=== PATIENT | female | born 1950 | race Caucasian/White ===

== ENCOUNTER 2022-03-17 10:27 | Outpatient (REF) | payer MEDICARE, SELFPAY ==
[2022-03-17 11:14] LABS: MANUAL DIFF FLAG NO
[2022-03-17 11:22] LABS: Basophils Absolute Auto 0.1 X10*3/uL (0.0-0.2); Basophils Percent Auto 1.5 % (0-2); Eosinophils Absolute Auto 0.1 X10*3/uL (0.0-0.4); Eosinophils Percent Auto 2.3 % (0-4); Hematocrit 37.8 % (37.0-47.0); Hemoglobin 11.9 g/dl (12.0-16.0); Imm Gran Abs Auto 0.01 X10*3/uL (0.00-0.03); Imm Gran Pct Auto 0.3 % (0.0-0.4); Lymphocytes Absolute Auto 1.2 X10*3/uL (1.2-4.9); Lymphocytes Percent Auto 34.9 % (20-40); Mean Corpuscular HGB Conc 31.5 g/dl (31.0-35.0); Mean Corpuscular Hemoglobin 21.9 pg (27.0-33.0); Mean Corpuscular Volume 69.5 fL (80.0-98.0); Mean Platelet Volume 10.9 fL (9.4-12.3); Monocytes Absolute Auto 0.3 X10*3/uL (0.1-1.2); Monocytes Percent Auto 9.1 % (2-11); Neutrophils Absolute Auto 1.8 x10*3/uL (2.0-8.3); Neutrophils Percent Auto 51.9 % (45-73); Platelet Count 310 X10*3/uL (160-400); Red Blood Count 5.44 X10*6/uL (4.20-5.50); Red Cell Distribution Width 15.4 % (11.0-16.0); White Blood Count 3.4 X10*3/uL (4.8-10.8)
[2022-03-17 12:20] LABS: Erythrocyte Sedimentation Rate 2 MM/HR (0-20)
[2022-03-17 12:22] LABS: TSH reflex Free T4 0.96 uIU/mL (0.32-4.0); Vitamin D 25-OH Total 30.5 ng/mL (>30)
[2022-03-17 12:34] LABS: Alanine Aminotransferase 21 U/L (0-31); Albumin Level 4.5 g/dL (3.5-5.0); Alkaline Phosphatase 82 U/L (39-117); Anion Gap 17 (12-20); Aspartate Amino Transferase 24 U/L (5-31); Bilirubin Total 0.8 mg/dL (0.0-1.0); Blood Urea Nitrogen 14 mg/dL (9-16); Calcium 9.6 mg/dL (8.4-10.2); Carbon Dioxide 24 mmol/L (22-29); Chloride 106 mmol/L (96-108); Cholesterol 213 mg/dL; Estimated Glomerular Filt Rate > 60; Glucose Fasting 87 mg/dL (60-99); HDL Cholesterol 89 mg/dL; Iron 121 mcg/dL (30-160); LDL Cholesterol Calculated 112 mg/dl; Percent Iron Saturation 33 % (15-50); Potassium 4.4 mmol/L (3.3-5.1); Sodium 143 mmol/L (135-145); Total Iron Binding Capacity 367 mcg/dL (228-428); Total Protein 7.1 g/dL (6.5-8.0); Triglycerides 60 mg/dL; Unsaturated Iron Binding 246 ug/dL
== END 2022-03-17 10:28 | disposition home or self-care (01) ==
LOC: HO.WFDLDS 10:27
PROVIDERS: Visit Provider Family Medicine
DX: Z00.00 Encounter for general adult medical examination without abnormal findings (principal); I10 Essential (primary) hypertension; E55.9 Vitamin D deficiency, unspecified; D50.9 Iron deficiency anemia, unspecified; M19.90 Unspecified osteoarthritis, unspecified site
CPT/HCPCS: 36415; 80053; 80061; 82306; 83540; 84443; 85025; 85652

== ENCOUNTER 2023-06-15 11:56 | Outpatient (AMB) | payer MEDICARE, SELFPAY ==
[2023-06-15 12:17] VITALS: BP 120/68; PULSE 68; O2SAT 100; BMI 29.6
--- NOTE | 2023-06-15 12:17 | A.OFFPC_ITS ---
Vital Signs 06/15/23 12:17 Height 5 ft 2 in Weight 162 lb BMI 29.6 BP 120/68 Blood Pressure Location Lt brachial Position Sitting Pulse 68 Pulse Source Pulse Oximeter Pulse Oximetry (%) 100 Oxygen Delivery Method Room Air Intake Visit Reasons: CPE with f/u labs and health maintenance Allergies Seasonal Allergies Allergy (Intermediate, Verified 10/25/22 09:13) Itchy Eyes Tobacco use date assessed: 04/12/22 HPI CPE with f/u labs and health maintenance HPI Details 72 y/o female presents for an extended e xam with f/u labs and health maintenance. No recent labs to review. Pt notes she had fallen on her shoulders and had received a massive tear on her shoulders. She states she has a shoulder repair procedure scheduled in July. HPI Comments History of Present Illness Details Documentation assistance for Darío Keene MD, was provided by Jun Hernández,? Sporting Goods Sales Manager on 06/15/2023 1:15 PM EST. I, Dr. Keene, have read, observed, and verified documentation.? 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 Morro Carrizales, Lindsey Rivera, Onur Pollock and colleagues, with an educational ryan from [employer] Review of Systems Const Denies chills, Denies fatigue, Denies fever(s), Denies headache(s) and Denies weakness Eyes Denies change in vision ENT Denies dizziness, Denies headache(s), Denies hearing loss, Denies nasal congestion, Denies sinus pain, Denies sinus pressure and Denies sore throat Card Denies chest pain, Denies lightheadedness, Denies dyspnea and Denies other (palpitations) Resp Denies cough, Denies dyspnea and Denies wheezing GI Denies abdominal pain, Denies melena, Denies hematochezia, Denies change in bowel habits, Denies dyspepsia and Denies nausea Denies hematuria and Denies dysuria Musc Denies abnormal gait, Denies myalgias, Denies arthralgias, Denies numbness and Denies tingling Skin/Breast Denies rash, Denies unusual bruising and Denies wounds Neuro Denies abnormal gait, Denies dizziness, Denies headache(s), Denies memory loss, Denies numbness, Denies Sensory deficit (Neuro), Denies tingling and Denies weakness Psych Denies anxiety, Denies depression and Denies memory loss Endo Denies cold intolerance, Denies fatigue, Denies heat intolerance, Denies polydipsia and Denies polyuria Sivakumar/Lymph Denies easy bleeding and Denies easy bruising Aller/Immun Denies wheezing Physical exam (Primary Care) Vital Signs: Last Vital Signs Pulse 68 06/15/23 12:17 BP 120/68 06/15/23 12:17 Pulse Ox 100 06/15/23 12:17 Oxygen Delivery Method Room Air 06/15/23 12:17 BMI result Body Mass Index 29.6 Tobacco/Smoking Status: Tobacco use Status Tobacco use date assessed 04/12/22 06/15/23 12:22 Patient Tobacco Use Status Never used Tobacco 06/15/23 12:22 Tobacco use type Smokeless Tobacco 06/15/23 12:22 e-Cigarette/Vaping Use Never Used 06/15/23 12:22 Thrive Assessment: Date of Thrive Assessment Date Thrive assessed 01/26/22 06/15/23 12:22 Const General: no acute distress, well developed, alert and awake Nutritional Appearance: well nourished Orientation/consciousness: patient oriented x3 HENMT Head: Yes normocephalic and Yes atraumatic Ears: hearing grossly normal bilaterally and TM's normal bilaterally General nose exam: Normal external nose present and Normal nares present Mouth: Normal oral and palatal mucosa present and moist mucous membranes Teeth and gingiva: dentition normal Throat: Yes posterior oropharynx normal Eyes General: appearance normal, both eyes and all related structures Pupils: Equal, round and reactive pupils present and Pupil accommodation reflex normal EOM: EOMs intact bilaterally Neck Neck: Yes normal visual inspection, Yes no lymphadenopathy and Yes trachea midline Thyroid: Thyroid normal Carotids: no bruits Lymphatic: no lymphadenopathy noted Chest Chest palpation & inspection: normal inspection of the chest Resp Effort & Inspection: normal respiratory effort Auscultation: clear to auscultation bilaterally Cardio Rate: regular rate Rhythm: regular rhythm Heart sounds: S1 normal heart sound present, S2 normal heart sound present, no gallops, no murmurs and no rubs Bruits: no abdominal aortic bruits and no carotid bruits GI Palpation (GI): No Abdominal aortic bruit present, Soft to palpation, nontender, No hepatosplenomegaly present and No Rebound tenderness present Auscultation: normal bowel sounds General: Yes no CVA tenderness Back/Spine/Pelvis Back: no CVA tenderness Cervical Spine: cervical ROM normal and No Cervical spine tenderness Thoracic/Lumbar Spine: thoraco-lumbar ROM normal, No pain with thoraco-lumbar ROM, No thoracic spinal tenderness and No lumbar spinal tenderness Skin Lesions: no lesions Rashes: no rashes Trauma: no lacerations or abrasions Wounds: no wounds Nails: normal Neuro General: patient oriented x3 Cranial nerves: Yes Equal, round and reactive pupils present Cognition (Neuro): normal cognition Gait exam (Neuro): Normal gait present Motor exam (neuro): 5/5 motor strength present throughout Sensory Exam: No Sensory deficit (Neuro) Deep tendon reflexes (DTR's): Right patellar reflex intensity grade: 2+ and Left patellar reflex intensity grade: 2+ Extrem General: Yes normal to inspection and No edema Psych Appearance: grossly normal Affect: normal affect Attitude: cooperative Thought process: Normal thought process present Assessment and Plan Assessment & Plan (1) Shoulder injury: Code(s): S49.90XA - Unspecified injury of shoulder and upper arm, unspecified arm, initial encounter Plan: Right?shoulder?rotator?cuff?tear?and?patient?is?scheduled?for?surgical?repair Follow-up?with?ortho[place]in[place]as?recommended (2) Screening for malignant neoplasm of cervix: Code(s): Z12.4 - Encounter for screening for malignant neoplasm of cervix Plan: Followed?by?pest control service representative?at[facility]?and?up-to-date (3) Breast cancer screening by mammogram: Code(s): Z12.31 - Encounter for screening mammogram for malignant neoplasm of breast Plan: Managed?by?her?pest control service representative?at?[facility] Will?request?report (4) Screening for osteoporosis: Code(s): Z13.820 - Encounter for screening for osteoporosis Plan: As?above,?managed?by?her?pest control service representative?and?will?request?report (5) Adult general medical exam: Code(s): Z00.00 - Encounter for general adult medical examination without abnormal findings Plan: 72-year-old?female?presents?for?extended?exam Orders: Orders Lipid Panel Today Z00.00 - Encounter for general adult medical examination without abnormal findings Microalbumin, Random (w Creat) Today I10 - Essential (primary) hypertension UA and rflx microscopic Today Z00.00 - Encounter for general adult medical exa mination without abnormal findings TSH reflex Free T4 Today Z00.00 - Encounter for general adult medical examination without abnormal findings Vitamin D 25-OH Total Today E55.9 - Vitamin D deficiency, unspecified XR DEXA axial skeleton Today M81.0 - Age-related osteoporosis without current pathological fracture Comprehensive [place]. Panel Fast Today Z00.00 - Encounter for general adult medical examination without abnormal findings Complete Blood Count Auto Diff Today Z00.00 - Encounter for general adult medical examination without abnormal findings MM tomosynthesis screening BI Today Z12.31 - Encounter for screening mammogram for malignant neoplasm of breast Coding Level of Care Code Est Pt Level 4 (03195) Diagnoses Shoulder injury S49.90XA Screening for malignant neoplasm of cervix Z12.4 Breast cancer screening by mammogram Z12.31 Screening for osteoporosis Z13.820 Adult general medical exam Z00.00
== END 2023-06-15 13:21 | disposition home or self-care (01) ==
PROVIDERS: Visit Provider Family Medicine
DX: S49.90XA Unspecified injury of shoulder and upper arm, unspecified arm, initial encounter (principal); Z12.4 Encounter for screening for malignant neoplasm of cervix; Z12.31 Encounter for screening mammogram for malignant neoplasm of breast; Z13.820 Encounter for screening for osteoporosis; Z00.00 Encounter for general adult medical examination without abnormal findings
CPT/HCPCS: 99214

== ENCOUNTER 2023-06-22 07:44 | Outpatient (REF) | payer MEDICARE, SELFPAY ==
[2023-06-22 11:24] LABS: MANUAL DIFF FLAG NO
[2023-06-22 11:32] LABS: Basophils Percent Auto 1.3 % (0-2); Eosinophils Absolute Auto 0.1 X10*3/uL (0.0-0.4); Imm Gran Abs Auto 0.01 X10*3/uL (0.00-0.03); Imm Gran Pct Auto 0.3 % (0.0-0.4); Lymphocytes Percent Auto 33.2 % (20-40); Mean Corpuscular HGB Conc 31.4 g/dl (31.0-35.0); Mean Corpuscular Hemoglobin 21.9 pg (27.0-33.0); Mean Corpuscular Volume 69.7 fL (80.0-98.0); Mean Platelet Volume 10.8 fL (9.4-12.3); Monocytes Absolute Auto 0.3 X10*3/uL (0.1-1.2); Monocytes Percent Auto 9.5 % (2-11); Neutrophils Absolute Auto 1.6 x10*3/uL (2.0-8.3); Neutrophils Percent Auto 52.7 % (45-73); Platelet Count 252 X10*3/uL (160-400); Red Blood Count 5.02 X10*6/uL (4.20-5.50); Red Cell Distribution Width 15.8 % (11.0-16.0)
[2023-06-22 11:32] LABS: Appearance Urine Cloudy; Color Urine Yellow; Glucose Urine UA Negative (Negative); Leukocyte Esterase Urine Moderate (2+) (Negative); Nitrite Urine Negative (Negative); PH 5.5 (5.0-9.0); UMIC TRIGGER UA YES; Urine Blood Negative (Negative); Urine Ketones Trace mg/dL (Negative); Urine Protein Negative (Neg-Trace)
[2023-06-22 11:38] LABS: Bacteria Urine 2+ (None Seen); RBC Urine 0-2 /HPF (0-2)
[2023-06-22 11:47] LABS: Parathyroid Hormone Intact 56.8 pg/mL (8.7-77.1)
[2023-06-22 11:54] LABS: Calcium 9.6 mg/dL (8.4-10.2); Estimated Glomerular Filt Rate > 60; Phosphorus 3.9 mg/dL (2.7-4.5)
[2023-06-22 11:56] LABS: Alanine Aminotransferase 22 U/L (0-31); Albumin Level 4.2 g/dL (3.5-5.0); Alkaline Phosphatase 63 U/L (39-117); Anion Gap 13 (12-20); Aspartate Amino Transferase 26 U/L (5-31); Bilirubin Total 0.5 mg/dL (0.0-1.0); Blood Urea Nitrogen 15 mg/dL (9-16); Calcium 9.7 mg/dL (8.4-10.2); Carbon Dioxide 25 mmol/L (22-29); Chloride 104 mmol/L (96-108); Cholesterol 185 mg/dL (<200); Estimated Glomerular Filt Rate > 60; Glucose Fasting 80 mg/dL (60-99); HDL Cholesterol 86 mg/dL (>40); LDL Cholesterol Calculated 88 mg/dL (<100); Sodium 138 mmol/L (135-145); Triglycerides 58 mg/dL (<150)
[2023-06-22 12:16] LABS: TSH reflex Free T4 1.87 uIU/mL (0.32-4.0); Vitamin D 25-OH Total 75.1 ng/mL (>30)
[2023-06-22 12:17] LABS: Free T4 (Free Thyroxine) 0.98 ng/dL (0.71-1.85); Thyroid Stimulating Hormone 1.91 uIU/mL (0.32-4.0)
[2023-06-22 12:22] LABS: Creatinine Urine 130.43 mg/dL; Microalbum/Creatinine Ratio Ur 19.9 ug/mg cr (<30)
[2023-06-26 23:54] LABS: Alkaline Phosphatase Bone 12.8 mcg/L (5.6-29.0)
== END 2023-06-22 07:45 | disposition home or self-care (01) ==
LOC: HO.WFDLDS 07:44
PROVIDERS: Referring Provider Student in an Organized Health Care Education/Training Program; Visit Provider Family Medicine
DX: Z00.00 Encounter for general adult medical examination without abnormal findings (principal); I10 Essential (primary) hypertension; E55.9 Vitamin D deficiency, unspecified; M81.0 Age-related osteoporosis without current pathological fracture
CPT/HCPCS: 36415; 80053; 80061; 81001; 82043; 82306; 82310; 82565; 82570; 83735; 83970; 84075; 84100; 84439; 84443; 85025

== ENCOUNTER 2023-07-20 16:03 | Outpatient (AMB) | payer MEDICARE, SELFPAY ==
--- NOTE | 2023-07-20 15:56 | MHC.PC.OV ---
Intake Visit Reasons: f/u CPE-labs Intake Note: Patient is following up on labs today. Allergies Seasonal Allergies Allergy (Intermediate, Verified 07/20/23 15:57) Itchy Eyes Tobacco use date assessed: 04/12/22 Fall risk assessment: 1 Fall in past year Last assessed Fall Risk: 07/20/23 Dental Screening Dental Screen Date: 07/20/23 Did you have a dental visit in the last 12 months?: Yes Did you have a dental problem in the last 6 months where you did not have access to dental care?: No Was dental information given to patient?: Patient has dentist HPI f/u CPE-labs HPI Details 72 y/o female presents to f/u CPE-labs via telemedicine. Labs were drawn 06/22/23. Reviewed labs with pt. Mild, stable microcytic anemia. Triglycerides 58. TC 185. LDL 88. HDL 86. 2+ urine bacteria. 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 1. Little interest or pleasure in doing things: not at all 2. Feeling down, depressed, or hopeless: not at all 3. Trouble falling or staying asleep, or sleeping too much: not at all 4. Feeling tired or having little energy: not at all 5. Poor appetite or overeating: not at all 6. Feeling bad about yourself - or that you are a failure or have let yourself or your family down: not at all 7. Trouble concentrating on things, such as reading the newspaper or watching television: not at all 8. Moving or speaking so slowly that other people could have noticed. Or the opposite - being so fidgety or restless that you have been moving around a lot more than usual: not at all 9. Thoughts that you would be better off or of hurting yourself in some way: not at all Total score: 0 Source: Developed by Drs. Morro Carrizales, Lindsey Rivera, Onur Pollock and colleagues, with an educational ryan from [employer]. Thrive Questionnaire Date Thrive assessed: 01/26/22 AUDIT C Alcohol Use Questionnaire (AUDIT-C) 1. How often do you have a drink containing alcohol?: 2-3 times a week 2. How many drinks containing alcohol do you have on a typical day when you are drinking?: 1 or 2 3. How often do you have six or more drinks on one occasion?: Never Total Score: 3 JUAN CARLOS-7 AMB Questionnaire JUAN CARLOS-7 Date JUAN CARLOS - 7 assessed: 07/20/23 Feeling nervous, anxious, or on edge: 0 = Not at all Not being able to stop or control worryin = Not at all Worrying too much about different things: 0 = Not at all Trouble relaxin = Not at all Being so restless that it is hard to sit still: 0 = Not at all Becoming easily annoyed or irritable: 0 = Not at all Feeling afraid as if something awful might happen: 0 = Not at all Total JUAN CARLOS-7 score (0-4 normal; 5-9 mild; 10-14 moderate; 15-21 severe): 0 Source: Developed by Drs. Morro Carrizales, Lindsey Rivera, Onur Pollock and colleagues, with an educational ryan from [employer]. Review of Systems Const Denies chills, Denies fatigue, Denies fever(s), Denies headache(s) and Denies weakness ENT Denies dizziness and Denies headache(s) Card Denies dyspnea Resp Denies cough, Denies dyspnea, Denies wheezing and Denies other (shortness of breath) Musc Denies numbness and Denies tingling Neuro Denies dizziness, Denies headache(s), Denies numbness, Denies tingling and Denies weakness Psych Denies anxiety and Denies depression Endo Denies fatigue Aller/Immun Denies wheezing Physical exam (Primary Care) Tobacco/Smoking Status: Tobacco use Status Tobacco use date assessed 04/12/22 07/20/23 15:58 Patient Tobacco Use Status Never used Tobacco 07/20/23 15:58 Tobacco use type Smokeless Tobacco 07/20/23 15:58 e-Cigarette/Vaping Use Never Used 07/20/23 15:58 PHQ-9: PHQ-9 Score PHQ-9: Total score 0 07/20/23 16:12 Thrive Assessment: Date of Thrive Assessment Date Thrive assessed 01/26/22 07/20/23 15:58 Telehealth Telehealth Location of provider rendering services: practice address Location of patient: address on file Patient Identification confirmed using: Name, : Yes Telehealth method: voice only Patient verbally consented to treatment: Yes Patient verbally consented to billing insurance company: Yes Patient informed of any privacy concerns related to visit: Yes Minutes spent on Phone/Video with Pt.: 14 Assessment and Plan Assessment & Plan (1) Microcytic anemia: Code(s): D50.9 - Iron deficiency anemia, unspecified Plan: Stable Patient?is?asymptomatic Will?recheck?CBC?and?iron?with?her?next?blood?draw (2) Bacteria in urine: Code(s): R82.71 - Bacteriuria Plan: Asymptomatic, bacteriuria Hydrate?well (3) Osteoporosis: Code(s): M81.0 - Age-related osteoporosis without current pathological fracture Plan: Patient?had?tried?alendronate?in?the?past?but?did?not?tolerated?well. She?will?try?ibandronate If?still?having?any?difficulty?she?can?let?me?know.??Would?refer?her?to?rheumatology Could?consider?infusion?such?as?Reclast (4) Screening for colon cancer: Code(s): Z12.11 - Encounter for screening for malignant neoplasm of colon Plan: She?says?that?her?last?colonoscopy?was?at?age?70?and?was?within?normal?limits. This?was?done?at[facility]-will?request?report Up-to-date (5) Screening for osteoporosis: Code(s): Z13.820 - Encounter for screening for osteoporosis Plan: Bone?density?showed?osteoporosis-see?above (6) Breast cancer screening by mammogram: Code(s): Z12.31 - Encounter for screening mammogram for malignant neoplasm of breast Plan: Up-to-date?with?mammograms?which?are?managed?by?her?hoop punch operator helper Medications: New ibandronate 150 mg PO .q month 4 tabs 3RF M81.0 - Age-related osteoporosis without current pathological fracture Coding Level of Care Code Tele Est Pt Level 2 (59155) Diagnoses Microcytic anemia D50.9 Bacteria in urine R82.71 Osteoporosis M81.0 Screening for colon cancer Z12.11 Screening for osteoporosis Z13.820 Breast cancer screening by mammogram Z12.31
== END 2023-07-20 17:00 ==
LOC: HO.HMGFM 16:03
PROVIDERS: PCP Family Medicine; Visit Provider Family Medicine
DX: D50.9 Iron deficiency anemia, unspecified (principal); R82.71 Bacteriuria; M81.0 Age-related osteoporosis without current pathological fracture; Z12.11 Encounter for screening for malignant neoplasm of colon; Z13.820 Encounter for screening for osteoporosis; Z12.31 Encounter for screening mammogram for malignant neoplasm of breast
CPT/HCPCS: 99442